=== PATIENT | female | born 1980 | race Caucasian/White ===

== ENCOUNTER 2016-04-01 11:30 | Emergency (ER) | payer BC, MEDICAID ==
[2016-04-01 13:50] VITALS: BP 122/84
== END 2016-04-01 14:40 | disposition left against medical advice (07) ==
LOC: UCEAST 11:30
DX: J06.9 Acute upper respiratory infection, unspecified (principal); Z53.21 Procedure and treatment not carried out due to patient leaving prior to being seen by health care provider